=== PATIENT | male | born 1990 | race Two or more races ===

== ENCOUNTER 2017-04-30 23:51 | Emergency (ER) | payer MEDICAID, OTHER ==
[~2017-04-30] VITALS: Ht 165.1 cm; Wt 83.9 kg
[2017-05-01 03:15] VITALS: BP 136/84
== END 2017-05-01 03:59 | disposition home or self-care (01) ==
LOC: ER 23:59
DX: T78.40XA Allergy, unspecified, initial encounter (principal); F41.9 Anxiety disorder, unspecified
CPT/HCPCS: 70360; 71010